=== PATIENT | male | born 1955 | race Caucasian/White ===

== ENCOUNTER 2019-06-29 13:26 | Emergency (ER) | payer MEDICAID ==
[~2019-06-29] VITALS: Ht 167.6 cm; Wt 65.8 kg
== END 2019-06-29 15:35 | disposition home or self-care (01) ==
LOC: ER 13:26
DX: S06.0X0A Concussion without loss of consciousness, initial encounter (principal); I10 Essential (primary) hypertension; W22.8XXA Striking against or struck by other objects, initial encounter
CPT/HCPCS: 70450; 99283-25

== ENCOUNTER 2023-05-08 16:05 | Emergency (ER) | payer MEDICARE ==
[~2023-05-08] VITALS: Ht 167.6 cm; Wt 81.7 kg
[2023-05-08 16:49] LABS: BASOPHILS ABSOLUTE AUTO 0.12 K/mm3 (0.00-0.23); BASOPHILS PERCENT AUTO 1 % (0-2); EOSINOPHILS ABSOLUTE AUTO 0.15 K/mm3 (0.00-0.68); EOSINOPHILS PERCENT AUTO 1 % (0-6); Hematocrit 45.4 % (37.0-53.0); Hemoglobin 16.2 g/dL (13.5-17.5); IMMATURE GRAN ABSOLUTE AUTO 0.03 K/mm3 (0.00-0.10); IMMATURE GRAN PERCENT AUTO 0 % (0-1); LYMPHOCYTES ABSOLUTE AUTO 2.37 K/mm3 (0.84-5.20); LYMPHOCYTES PERCENT AUTO 21 % (21-46); MONOCYTES ABSOLUTE AUTO 0.82 K/mm3 (0.16-1.47); MONOCYTES PERCENT AUTO 7 % (4-13); Mean Corpuscular HGB 31.2 pg (26.0-34.0); Mean Corpuscular HGB Conc 35.7 g/dL (31.5-36.5); Mean Corpuscular Volume 88 fL (80-100); Mean Platelet Volume 9.4 fL (9.1-12.4); NEUTROPHILS ABSOLUTE AUTO 7.65 K/mm3 (1.96-9.15); NEUTROPHILS PERCENT AUTO 69 % (41-73); Platelet Count 359 K/mm3 (150-400); RDW Coefficient Variation 12.4 % (11.7-14.2); RDW Standard Deviation 39.5 fL (35.1-46.3); Red Blood Cell Count 5.19 M/mm3 (4.30-5.90); White Blood Cell Count 11.14 K/mm3 (4.00-11.30)
[2023-05-08 17:35] LABS: Albumin, Blood 3.9 g/dL (3.4-5.0); Albumin/Globulin Ratio 0.9 (0.8-1.8); Bilirubin, Total 0.3 mg/dL (0.1-1.0); Bun/Creatinine Ratio 23.3 (12.0-20.0); Calcium, Blood 8.8 mg/dL (8.5-10.1); Creatinine, Blood 0.99 mg/dL (0.60-1.20); Free Thyroxine 1.11 ng/dL (0.70-1.60); Globulin, Blood 4.2 g/dL (2.2-4.0); Potassium, Blood 4.1 mmol/L (3.5-5.5); Total Protein, Blood 8.1 g/dL (6.4-8.2)
[2023-05-08 18:30] VITALS: BP 160/82
[2023-05-09] MEDS ORDERED: AMLODIPINE BESYL5 MG PO (13:19)
[2023-05-09] MEDS ORDERED: BUPR150ER PO (13:19)
[2023-05-09] MEDS ORDERED: EUTHYROX100 MC1 PO (13:20)
== END 2023-05-08 18:43 | disposition home or self-care (01) ==
LOC: ER 16:05
PROVIDERS: Physician Assistant
DX: R07.9 Chest pain, unspecified (principal); I10 Essential (primary) hypertension; F17.200 Nicotine dependence, unspecified, uncomplicated; Z53.29 Procedure and treatment not carried out because of patient's decision for other reasons
CPT/HCPCS: 71046; 80053; 83880; 84439; 84484; 85025; 93005; 93010; 99285-25

== ENCOUNTER 2023-05-09 10:27 | Observation (INO) | payer MEDICARE ==
[~2023-05-09] VITALS: Ht 167.6 cm; Wt 74.3 kg
[2023-05-09 10:58] LABS: BASOPHILS ABSOLUTE AUTO 0.11 K/mm3 (0.00-0.23); BASOPHILS PERCENT AUTO 1 % (0-2); EOSINOPHILS ABSOLUTE AUTO 0.12 K/mm3 (0.00-0.68); EOSINOPHILS PERCENT AUTO 1 % (0-6); Hematocrit 45.3 % (37.0-53.0); Hemoglobin 15.7 g/dL (13.5-17.5); IMMATURE GRAN ABSOLUTE AUTO 0.04 K/mm3 (0.00-0.10); IMMATURE GRAN PERCENT AUTO 0 % (0-1); LYMPHOCYTES ABSOLUTE AUTO 1.65 K/mm3 (0.84-5.20); LYMPHOCYTES PERCENT AUTO 14 % (21-46); MONOCYTES ABSOLUTE AUTO 0.75 K/mm3 (0.16-1.47); MONOCYTES PERCENT AUTO 6 % (4-13); Mean Corpuscular HGB 30.5 pg (26.0-34.0); Mean Corpuscular HGB Conc 34.7 g/dL (31.5-36.5); Mean Corpuscular Volume 88 fL (80-100); Mean Platelet Volume 9.1 fL (9.1-12.4); NEUTROPHILS ABSOLUTE AUTO 9.15 K/mm3 (1.96-9.15); NEUTROPHILS PERCENT AUTO 78 % (41-73); Platelet Count 365 K/mm3 (150-400); RDW Coefficient Variation 12.3 % (11.7-14.2); RDW Standard Deviation 40.1 fL (35.1-46.3); Red Blood Cell Count 5.15 M/mm3 (4.30-5.90); White Blood Cell Count 11.82 K/mm3 (4.00-11.30)
[2023-05-09 11:17] LABS: Albumin, Blood 3.6 g/dL (3.4-5.0); Bilirubin, Total 0.4 mg/dL (0.1-1.0); Bun/Creatinine Ratio 24.9 (12.0-20.0); Calcium, Blood 8.6 mg/dL (8.5-10.1); Creatinine, Blood 0.97 mg/dL (0.60-1.20); Globulin, Blood 3.5 g/dL (2.2-4.0); Total Protein, Blood 7.1 g/dL (6.4-8.2)
[2023-05-09] MEDS ORDERED: BUPR150ER PO (13:19)
[2023-05-09] MEDS ORDERED: AMLODIPINE BESYL5 MG PO (13:19)
[2023-05-09] MEDS ORDERED: EUTHYROX100 MC1 PO (13:20)
[2023-05-09 14:46] VITALS: BP 168/79
--- NOTE | 2023-05-09 19:17 | NUR ---
PT ADMITTED THIS AFT. A/O X3 PLEASANT SOME ANX. STATES NO CHEST PAIN, WHICH HE HAD LAST 4-5 DAYS. BUT HAS OCCATIONAL LEFT SIDE ARM PAIN TO NECK. RESOLVED AT THIS TIME. SOME SOB WITH ACTIVITY. H/R REG, NO MURMUR NOTED. PER TELE NSR AT 79. LUNGS CLEAR, RESP EASY, UNLABORED ON R.A. PT AMBULATORY. DR FOUNTAIN IN ROOM, GIVING ORDERS FOR STRESS STRESS AND ECHO TOMORROW. NO OTHER CONCERNS NOTED. BED IN LOW POSITION, CALL LITE IN REACH. CALLS APPROP
[2023-05-09 19:38] VITALS: BP 124/71
--- NOTE | 2023-05-09 20:00 | NUR ---
REFUSED LABS PT REFUSED LABS THIS AFTERNOON. PT EDUCATED ON REASON FOR REPEAT TROPONIN. PT ASKED FOR LAB TO BE DRAWN FROM HIS IV. RN INFORMED HIM THIS CANT BE DONE UNFORTUNATELY. PT THEN REFUSED LABS. DR. FOUNTAIN NOTIFIED. NO NEW ORDERS
[2023-05-10 04:44] VITALS: BP 148/83
--- NOTE | 2023-05-10 05:13 | NUR ---
SHIFT SUMMARY PT NPO SINCE MIDNIGHT EXCEPT WATER FOR STRESS TEST TODAY. ORIENTED T/O SHIFT. PT REFUSED EVENING TROPONIN LAB STATING "I WILL NOT BE POKED AGAIN". DENIED PAIN THIS SHIFT. PT ANXIOUS BEFORE FALLING ASLEEP. MELATONIN ORDERED AFTER TALKING WITH DR. SHINE OVERNIGHT ABOUT DIFFICULTY SLEEPING. PT HAS BEEN RESTING WITH RESPIRATIONS EVEN & UNLABORED T/O THE NIGHT. NO OTHER ACUTE CHANGES IN ASSESSMENT AT THIS TIME. VS REVIEWED. CALL LIGHT IN REACH
[2023-05-10 08:07] VITALS: BP 129/81
--- NOTE | 2023-05-10 09:02 | NUR ---
NEW LAB ORDERS PLACED. PT AGREEABLE AT THIS TIME TO LAB DRAW AFTER REFUSING SEVERAL TIMES. PT NOT WANTING TO "BE POKED ANYMORE." ONLY WILLING TO HAVE DRAW FROM HANDS. RESEARCH PHYSICIAN AWARE.
[2023-05-10 09:31] LABS: BASOPHILS ABSOLUTE AUTO 0.09 K/mm3 (0.00-0.23); BASOPHILS PERCENT AUTO 1 % (0-2); EOSINOPHILS ABSOLUTE AUTO 0.14 K/mm3 (0.00-0.68); EOSINOPHILS PERCENT AUTO 2 % (0-6); Hematocrit 44.3 % (37.0-53.0); Hemoglobin 15.2 g/dL (13.5-17.5); IMMATURE GRAN ABSOLUTE AUTO 0.03 K/mm3 (0.00-0.10); IMMATURE GRAN PERCENT AUTO 0 % (0-1); LYMPHOCYTES ABSOLUTE AUTO 1.93 K/mm3 (0.84-5.20); LYMPHOCYTES PERCENT AUTO 21 % (21-46); MONOCYTES ABSOLUTE AUTO 0.65 K/mm3 (0.16-1.47); MONOCYTES PERCENT AUTO 7 % (4-13); Mean Corpuscular HGB 30.3 pg (26.0-34.0); Mean Corpuscular HGB Conc 34.3 g/dL (31.5-36.5); Mean Corpuscular Volume 88 fL (80-100); Mean Platelet Volume 8.8 fL (9.1-12.4); NEUTROPHILS PERCENT AUTO 70 % (41-73); Platelet Count 314 K/mm3 (150-400); RDW Coefficient Variation 12.2 % (11.7-14.2); RDW Standard Deviation 39.4 fL (35.1-46.3); Red Blood Cell Count 5.02 M/mm3 (4.30-5.90); White Blood Cell Count 9.34 K/mm3 (4.00-11.30)
[2023-05-10 10:01] LABS: Anion Gap 8 mmol/L (6-16); Blood Urea Nitrogen 26 mg/dL (8-24); Bun/Creatinine Ratio 26.4 (12.0-20.0); CHOL/HDL RATIO 4.8; CO2, Blood 26 mmol/L (21-32); Calcium, Blood 8.3 mg/dL (8.5-10.1); Chloride, Blood 111 mmol/L (98-108); Cholesterol 169 mg/dL (50-200); Creatinine, Blood 0.99 mg/dL (0.60-1.20); Glomerular Filtration Rate 83 (60-); Glucose, Blood 93 mg/dL (70-99); HDL Cholesterol 35 mg/dL (>39); LDL/HDL RATIO 2.7; Low Density Lipoprotein Chol 95 mg/dL (0-110); Sodium, Blood 145 mmol/L (136-145); Triglycerides 196 mg/dL (30-160); Very Low Density Lipoprot Chol 39 mg/dL (6-32)
[2023-05-10] MEDS ORDERED: NICO21TP TOP (13:48)
[2023-05-10] MEDS ORDERED: NITR.4SL SL (13:48)
[2023-05-10] MEDS ORDERED: DULERA 100 MCG-13 GM INH (13:48)
[2023-05-10] MEDS ORDERED: PANT40 PO (13:49)
[2023-05-10] MEDS ORDERED: Acetaminophen650 M1 PO (13:49)
[2023-05-10] MEDS ORDERED: ENOX40I SC (13:56)
[2023-05-10] MEDS ORDERED: ALBU90OI61 INH (13:56)
--- NOTE | 2023-05-10 14:40 | NUR ---
DISCHARGE: PT D/C @4651 INDEPENDENTLY VIA AUTOMOBILE. IV REMOVED W/O COMPLICATIONS. TELE SENT BACK. NO CHEST PAIN AT TIME OF DISCHARGE. PT INSTRUCTED TO FOLLOW-UP WITH PRIMARY CARE. NEW MEDICATIONS DISCUSSED WITH PT. MEDICATIONS FAXED TO [facility].
== END 2023-05-10 14:26 | disposition home or self-care (01) ==
LOC: ER 10:27 → MEDS 10:28
PROVIDERS: Student in an Organized Health Care Education/Training Program; ADMIT Internal Medicine
DX: I20.9 Angina pectoris, unspecified (principal); K21.9 Gastro-esophageal reflux disease without esophagitis; I10 Essential (primary) hypertension; E78.5 Hyperlipidemia, unspecified; Z72.0 Tobacco use; J44.9 Chronic obstructive pulmonary disease, unspecified; E03.9 Hypothyroidism, unspecified; K75.81 Nonalcoholic steatohepatitis (NASH)
CPT/HCPCS: 36415; 80048; 80053; 80061; 84484; 85025; 93005; 93010; 94640; 94664; 94760; 99285-25; A9270; G0378